=== PATIENT | female | born 1985 | race Caucasian/White ===

== ENCOUNTER 2017-11-26 22:20 | Emergency (ER) | payer OTHER ==
--- NOTE | 2017-11-26 22:38 | ED PDOC ---
HPI: General Adult Time Seen by Provider: 11/26/17 22:38 Chief Complaint (Nursing): Shortness Of Breath Chief Complaint (Provider): SOB, calf pain History Per: Patient Additional Complaint(s): 32-year-old female presents with shortness of breath and left calf pain that started about 1 hour prior to arrival. Patient is status post D&C this morning. She states she was watching TV this evening when she developed shortness of breath and noticed some swelling and pain to left calf. Patient denies any history of DVT or PE. She denies any chest pain. Patient states that she became via IVF and this is her second D&C. No cough, fever or chills. Past Medical History Reviewed: Historical Data, Nursing Documentation, Vital Signs Vital Signs: Last Vital Signs Temp 98.0 F 11/26/17 22:23 Pulse 84 11/26/17 22:23 Resp 16 11/26/17 22:45 BP 114/69 11/26/17 22:23 Pulse Ox 98 11/27/17 01:39 - Medical History PMH: No Chronic Diseases - Surgical History Other surgeries: D&C x 2 - Family History Family History: States: No Known Family Hx - Living Arrangements Living Arrangements: With Family - Social History Current smoker - smoking cessation education provided: No Alcohol: None Drugs: Denies - Allergies Allergies/Adverse Reactions: Allergies Allergy/AdvReac Type Severity Reaction Status Date / Time No Known Allergies Allergy Verified 11/26/17 22:23 Review of Systems ROS Statement: Except As Marked, All Systems Reviewed And Found Negative Constitutional: Negative for: Fever, Chills Cardiovascular: Negative for: Chest Pain Respiratory: Positive for: Shortness of Breath, SOB with Exertion. Negative for : Cough, Hemoptysis, Wheezing Gastrointestinal: Positive for: Abdominal Pain. Negative for: Nausea, Vomiting , Diarrhea Genitourinary Female: Positive for: Vaginal Bleeding. Negative for: Dysuria Musculoskeletal: Positive for: Leg Pain (left calf pain and swelling) Neurological: Negative for: Headache, Dizziness Physical Exam - Reviewed Nursing Documentation Reviewed: Yes Vital Signs Reviewed: Yes - Physical Exam Appears: Positive for: Well, Non-toxic, No Acute Distress Skin: Positive for: Normal Color. Negative for: Rash Eye Exam: Positive for: Normal appearance Neck: Positive for: Normal Cardiovascular/Chest: Positive for: Regular Rate, Rhythm. Negative for: Tachycardia Respiratory: Positive for: Normal Breath Sounds. Negative for: Wheezing, Respiratory Distress Gastrointestinal/Abdominal: Positive for: Tenderness (minimal lower abdominal tenderness). Negative for: Distended, Guarding, Rebound Back: Negative for: L CVA Tenderness, R CVA Tenderness Extremity: Positive for: Normal ROM Neurologic/Psych: Positive for: Alert, Oriented - Laboratory Results Result Diagrams: 11/26/17 23:42 11/26/17 23:42 Urine POC: Positive (s/p D&C today) Urine dip results: Positive for: Blood (moderate), Glucose. Negative for: Leukocyte Esterase, Nitrate, Ketones, Bilirubin, Protein - ECG Interpretation Of ECG: Normal sinus rhythm 79 bpm, no acute changes, reviewed by PA and ED attending O2 Sat by Pulse Oximetry: 98 Pulse Ox Interpretation: Normal - Other Rad CT angio X-Ray: Read By Radiologist X-Ray Interpretation: see below Bedside chest X-Ray: Interpreted by Me, Viewed By Me X-Ray Interpretation: no acute finding Doppler bilateral lower extremities X-Ray: Read By Radiologist X-Ray Interpretation: No DVT b/l Medical Decision Making Medical Decision Makin32 year old female with SOB and left calf pain Plan: EKG CXR CT angio CBC CMP Trop PT/PTT IVF U preg CT: FINDINGS: PULMONARY ARTERIES: Contrast opacification of the pulmonary arteries is adequate, and there are no filling defects seen to suggest pulmonary embolism. AORTA: No evidence of aortic dissection. LUNGS: Incidental 5 mm noncalcified pulmonary nodule in the left lung, image 72/series 601. There is a nearby partially calcified nodule in the left lung. For low-risk patients, no follow-up is necessary. For high-risk patients (smoking history or other known risk factors) an optional chest CT at 12 months could be performed. Areas of focal scarring and bronchiectatic changes in the upper lobes bilaterally. Bandlike density in the right lower lobe, most likely representing scarring. Additional multifocal thin, linear areas of scarring or atelectasis in the lungs bilaterally. Scattered areas of mosaic attenuation in the lung parenchyma bilaterally, which could represent focal air trapping from small airways disease, such as reactive airways disease. No evidence of significant focal consolidation/infiltrate in the lungs. No evidence of diffuse pulmonary vascular congestion. PLEURAL SPACE: No pneumothorax or pleural effusions seen. HEART: No evidence of significant pericardial effusion. MEDIASTINUM: Small hiatal hernia. BONES/JOINTS: No acute bony abnormality identified. SOFT TISSUES: No acute abnormality of the visualized soft tissues seen. LYMPH NODES: No evidence of diffuse lymphadenopathy. IMPRESSION: - No evidence of pulmonary embolism or other significant acute abnormality in the chest. - Incidental 5 mm pumonary nodule. See recommendations above. - Scattered chronic bronchiectatic changes and scarring in the lungs bilaterally. Patient is aware of all diagnostic test results, all questions answered. Patient aware of incidental findings on CT as above. Patient states she has history of tuberculosis from 2001. Patient denies recurrence of shortness of breath since arrival to ED. Advised fluids, rest and follow-up with primary care doctor. Disposition - Clinical Impression Clinical Impression: Muscle cramp, Dyspnea - Patient ED Disposition Is Patient to be Admitted: No Counseled Patient/Family Regarding: Studies Performed, Diagnosis, Need For Followup - Disposition Referrals: [facility] [Outside] Disposition: Routine/Home Disposition Time: 02:01 Condition: STABLE Additional Instructions: Rest and drink plenty of fluids. Tylenol for pain as needed. Follow-up with primary doctor or return any time if acutely worse. Instructions: Muscle and Bone Pain (DC), Shortness of Breath (Dyspnea) (DC) Forms: [employer] (Telugu) Results - Lab Results Lab Results: 11/26/17 11/26/17 23:42 23:42 WBC 15.4 H RBC 4.06 Hgb 11.7 L Hct 34.7 MCV 85.6 MCH 28.9 MCHC 33.8 RDW 13.3 Plt Count 336 MPV 8.3 Neut % (Auto) 90.3 H Lymph % (Auto) 5.2 L [place] % (Auto) 4.0 Eos % (Auto) 0.0 Baso % (Auto) 0.5 Neut # (Auto) 13.9 H Lymph # (Auto) 0.8 L [place] # (Auto) 0.6 Eos # (Auto) 0.0 Baso # (Auto) 0.1 Neutrophils % (Manual) 87 H Lymphocytes % (Manual) 8 L Monocytes % (Manual) 4 Eosinophils % (Manual) 1 Platelet Estimate Normal Sodium 136 Potassium 5.1 H Chloride 106 Carbon Dioxide 21 L Anion Gap 14 BUN 10 Creatinine 0.5 L Est GFR ( Amer) > 60 Est GFR (Non-Af Amer) > 60 Random Glucose 185 H Calcium 9.0 Total Bilirubin 0.3 AST 32 ALT 21 Alkaline Phosphatase 30 L Troponin I < 0.0120 Total Protein 7.3 Albumin 3.6 Globulin 3.7 Albumin/Globulin Ratio 1.0
[2017-11-26] MEDS ORDERED: Sodium Chloride 0.9% 1,000 ML IV STA (22:57)
[2017-11-26] MEDS ORDERED: Sodium Chloride 0.9% 50 ML IV ONE (23:10)
[2017-11-26] MEDS ORDERED: Iodixanol 320 MG/ML 100 ML BOTTLE IV ONE (23:10)
[2017-11-26 23:46] LABS: BASO # 0.1 K/uL (0.0-0.2); BASO % 0.5 % (0.0-2.0); HEMOGLOBIN 11.7 g/dL (12.0-16.0); LYMPH # 0.8 K/uL (1.0-4.3); LYMPH % 5.2 % (20.0-40.0); MEAN CELL VOLUME 85.6 fl (81.0-99.0); MEAN CORPUSCULAR HEMOGLOBIN 28.9 pg (27.0-31.0); MEAN CORPUSCULAR HGB CONC 33.8 g/dL (33.0-37.0); MEAN PLATELET VOLUME 8.3 fl (7.2-11.7); MONO # 0.6 K/uL (0.0-0.8); NEUT # 13.9 K/uL (1.8-7.0); NEUT % 90.3 % (50.0-75.0); PLATELET COUNT 336 K/uL (130-400); RBC 4.06 Mil/uL (3.80-5.20); RED CELL DISTRIBUTION WIDTH 13.3 % (11.5-14.5); WHITE BLOOD COUNT 15.4 K/uL (4.8-10.8)
--- NOTE | 2017-11-26 23:49 | US ---
EXAM: US Duplex Bilateral Lower Extremity Veins EXAM DATE/TIME: 11/26/2017 10:57 PM CLINICAL HISTORY: 32 years old, female; Pain; Leg, lower; Left; Additional info: SOB, calf pain TECHNIQUE: Real-time duplex ultrasound scan of the bilateral lower extremity veins integrating B-mode two-dimensional vascular structure, Doppler spectral analysis, color flow Doppler imaging and compression. COMPARISON: There are no prior studies for comparison. FINDINGS: Right deep veins: Common femoral, superficial femoral, popliteal and posterior tibial veins were evaluated. Left deep veins: Common femoral, superficial femoral, popliteal and posterior tibial veins were evaluated. All veins examined are compressible. There are no intraluminal filling defects. There is expected blood flow on Doppler imaging. There is change in waveform with augmentation. Impression: No deep venous thrombosis in the visualized vascular segments of the lower extremities
[2017-11-27] LABS: ALBUMIN 3.6 g/dL (3.5-5.0); GFR AFRICAN-AMERICAN > 60; GFR NON-AFRICAN AMERICAN > 60
[2017-11-27 00:05] LABS: ALT/SGPT 21 U/L (9-52); AST/SGOT 32 U/L (14-36); BLOOD UREA NITROGEN 10 mg/dl (7-17)
[2017-11-27 01:01] LABS: EOSINOPHIL 1 % (0-7); LYMPHOCYTE 8 % (20-50); MONOCYTE 4 % (0-10); NEUTROPHIL 87 % (42-75); PLATELET ESTIMATE NORMAL (NORMAL); TOTAL CELLS COUNTED 100
--- NOTE | 2017-11-27 01:23 | CT ---
EXAM: CT Angiography Chest With Intravenous Contrast EXAM DATE/TIME: 11/26/2017 10:57 PM CLINICAL HISTORY: 32 years old, female; Signs and symptoms; Shortness of breath; Additional info: SOB, S/P d c this am TECHNIQUE: Axial computed tomographic angiography images of the chest with intravenous contrast using pulmonary embolism protocol. All CT scans at this facility use one or more dose reduction techniques, viz.: automated exposure control; ma/kV adjustment per patient size (including targeted exams where dose is matched to indication; i.e. head); or iterative reconstruction technique. MIP reconstructed images were created and reviewed. Coronal and sagittal reformatted images were created and reviewed. CONTRAST: 85 mL of [id number] administered intravenously. COMPARISON: No relevant prior studies available. FINDINGS: PULMONARY ARTERIES: Contrast opacification of the pulmonary arteries is adequate, and there are no filling defects seen to suggest pulmonary embolism. AORTA: No evidence of aortic dissection. LUNGS: Incidental 5 mm noncalcified pulmonary nodule in the left lung, image 72/series 601. There is a nearby partially calcified nodule in the left lung. For low-risk patients, no follow-up is necessary. For high-risk patients (smoking history or other known risk factors) an optional chest CT at 12 months could be performed. Areas of focal scarring and bronchiectatic changes in the upper lobes bilaterally. Bandlike density in the right lower lobe, most likely representing scarring. Additional multifocal thin, linear areas of scarring or atelectasis in the lungs bilaterally. Scattered areas of mosaic attenuation in the lung parenchyma bilaterally, which could represent focal air trapping from small airways disease, such as reactive airways disease. No evidence of significant focal consolidation/infiltrate in the lungs. No evidence of diffuse pulmonary vascular congestion. PLEURAL SPACE: No pneumothorax or pleural effusions seen. HEART: No evidence of significant pericardial effusion. MEDIASTINUM: Small hiatal hernia. BONES/JOINTS: No acute bony abnormality identified. SOFT TISSUES: No acute abnormality of the visualized soft tissues seen. LYMPH NODES: No evidence of diffuse lymphadenopathy. IMPRESSION: - No evidence of pulmonary embolism or other significant acute abnormality in the chest. - Incidental 5 mm pumonary nodule. See recommendations above. - Scattered chronic bronchiectatic changes and scarring in the lungs bilaterally. - See above for remaining findings.
[2017-11-27 02:09] VITALS: BP 106/64; PULSE 72; RESP 18; TEMP 98.3
[2017-11-27 02:16] VITALS: O2SAT 98
--- NOTE | 2017-11-27 08:01 | RAD ---
HISTORY: clearance COMPARISON: No prior. FINDINGS: LUNGS: No active pulmonary disease. However, fibrotic changes in the medial right apex with pleural thickening at the apex and possibly at the medial left base as well. PLEURA: No significant pleural effusion identified, no pneumothorax apparent. CARDIOVASCULAR: Normal. OSSEOUS STRUCTURES: No significant abnormalities. VISUALIZED UPPER ABDOMEN: Normal. OTHER FINDINGS: None. IMPRESSION: No acute airspace disease bilaterally. 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 No definite acute cardiovascular changes.
== END 2017-11-27 02:10 | disposition home or self-care (01) ==
LOC: H.ER 22:20
DX: R06.00 Dyspnea, unspecified (principal); R25.2 Cramp and spasm
CPT/HCPCS: 71045; 71275; 80053; 81025; 84484; 85025; 93970; 99284; J7030; Q9967

== ENCOUNTER 2018-05-21 17:29 | Emergency (ER) | payer OTHER ==
[2018-05-21 17:43] VITALS: RESP 18; O2SAT 100
[2018-05-21] MEDS ORDERED: Sodium Chloride 0.9% 1,000 ML IV STA (17:59)
--- NOTE | 2018-05-21 18:07 | ED PDOC ---
HPI: SOB/CHF/COPD Time Seen by Provider: 05/21/18 17:39 Chief Complaint (Nursing): Shortness Of Breath Chief Complaint (Provider): shortness of breath History Per: Patient History/Exam Limitations: no limitations Onset/Duration Of Symptoms: Days (x3 weeks) Associated Symptoms: denies: Fever, Chills, Chest Pain, Productive Cough, Leg/Calf Pain, Ankle/Leg Swelling Additional Complaint(s): Lula Snell is a 33 year old female, with a past medical history of hypot hyroidism, who presents to the emergency department complaining of episodes of shortness of breath over the past x3 weeks associated with dizziness. Patient is also complaining of generalized weakness today and states symptoms worsen at night. Patient reports feeling short of breath usually after eating and states symptoms resolve after walking and drinking hot tea. She was seen by her GI in [place] last week where she had blood work done and was also seen at an urgent care center where she had labs done for the same complaints. She denies any fever, chills, chest pain, vision changes, palpitations, cough, congestion, long distance travel, nausea, vomiting, diarrhea, abdominal pain, urinary symptoms, leg pain, numbness or tingling, weakness, headache or control use. No further medical complaints. Of note, patient was diagnosed with tuberculosis last year but states she had an x-ray done recently which was normal. PMD: None provided. Past Medical History Reviewed: Historical Data, Nursing Documentation, Vital Signs Vital Signs: Last Vital Signs Temp 97.8 F 05/21/18 17:42 Pulse 63 05/21/18 17:42 Resp 18 05/21/18 17:42 BP 117/75 05/21/18 17:42 Pulse Ox 100 05/21/18 17:42 - Medical History PMH: Hypothyroidism - Surgical History Other surgeries: D&C - Family History Family History: States: Unknown Family Hx - Allergies Allergies/Adverse Reactions: Allergies Allergy/AdvReac Type Severity Reaction Status Date / Time No Known Allergies Allergy Verified 05/21/18 17:33 Review of Systems ROS Statement: Except As Marked, All Systems Reviewed And Found Negative Constitutional: Negative for: Fever, Chills ENT: Negative for: Nose Congestion Cardiovascular: Negative for: Chest Pain Respiratory: Positive for: Shortness of Breath. Negative for: Cough Gastrointestinal: Negative for: Nausea, Vomiting, Abdominal Pain, Diarrhea Genitourinary Female: Negative for: Dysuria, Frequency, Incontinence Neurological: Negative for: Weakness, Numbness (tingling), Headache, Dizziness Physical Exam - Reviewed Nursing Documentation Reviewed: Yes Vital Signs Reviewed: Yes - Physical Exam Appears: Positive for: No Acute Distress Head Exam: Positive for: ATRAUMATIC, NORMAL INSPECTION, NORMOCEPHALIC Skin: Positive for: Normal Color, Warm, Dry Eye Exam: Positive for: Normal appearance, EOMI, PERRL Neck: Positive for: Normal, Painless ROM Cardiovascular/Chest: Positive for: Regular Rate, Rhythm, Chest Non Tender. Negative for: Murmur Respiratory: Positive for: Normal Breath Sounds. Negative for: Respiratory Distress Gastrointestinal/Abdominal: Positive for: Normal Exam, Soft. Negative for: Tenderness, Guarding, Rebound Back: Positive for: Normal Inspection. Negative for: L CVA Tenderness, R CVA Tenderness, Vertebral Tenderness Extremity: Positive for: Normal ROM (upper and lower extremities). Negative for: Deformity, Swelling Neurologic/Psych: Positive for: Alert, Oriented. Negative for: Motor/Sensory Deficits - Laboratory Results Result Diagrams: 05/21/18 18:25 05/21/18 18:25 - ECG O2 Sat by Pulse Oximetry: 100 (RA) Pulse Ox Interpretation: Normal Medical Decision Making Medical Decision Making: Time: 17:39 Initial Impression: shortness of breath Initial Plan: --EKG --CMP --Lipase --Magnesium --Phosphorus --Troponin I --Urine --CBC w/ differential --Chest two views (PA/LAT) [RAD] --Pepcid 20 mg IVP --Sodium Chloride 1,000 ml IV 1,000 mls/hr --Reevaluation -Reviewed labs with patient, she had CBC, CMP, TSH, H. Pylori and Celiac panel done, all of which were unremarkable. 18:[address] Boykin pending X-Ray and labs. Scribe Attestation: Documented by Dalton Mo, acting as a scribe for Joe Drake MD. Provider Scribe Attestation: All medical record entries made by the Scribe were at my direction and personally dictated by me. I have reviewed the chart and agree that the record accurately reflects my personal performance of the history, physical exam, medic al decision making, and the department course for this patient. I have also personally directed, reviewed, and agree with the discharge instructions and disposition. Disposition - Clinical Impression Clinical Impression: Dyspnea - Disposition Disposition: Transfer of Care Disposition Time: 18:00 Condition: STABLE Additional Instructions: Labwork, chest xray and EKG performed today. See your doctor for further testing in next week. Return to ER for any new or worsening symptoms. Instructions: Shortness of Breath (Dyspnea) (DC) Forms: [employer] (Romanian) Patient Signed Over To: Kiko Boykin III
--- NOTE | 2018-05-21 18:13 | ED PDOC ---
- Laboratory Results Result Diagrams: 05/21/18 18:25 05/21/18 18:25 - ECG O2 Sat by Pulse Oximetry: 100 (RA) Pulse Ox Interpretation: Normal Medical Decision Making Medical Decision Making: pt endorsed from dr martinez pending labs and re-eval. Reports extensive prior outpatient workup which has been unrevealing per patient. CXR prelim view negative labs reviewed and unremarkable on re-eval feels bettter, SPO2 100% and HR 68, lungs clear. I discussed risk factors for thromboembolism including recent immobilization, malignancy, OCPs, smoking, history in self or family and she denies any risk factors. She was nonetheless offered CTA chest for definitive r/o PE and she declined stating felt better. Given normal HR, normal SPO2, no risk factors, less likely to be PE but no excluded, although patient and family member adamant about not doing test and wanting to go home. Given followup and PMD Dr Singer recommended for echo or further testing and indications for return ER discussed. Disposition - Clinical Impression Clinical Impression: Dyspnea - POA Present On Arrival: None - Disposition Referrals: Amanda Singer MD [Staff Provider] - Disposition: Routine/Home Disposition Time: 19:25 Condition: STABLE Additional Instructions: Labwork, chest xray and EKG performed today. See your doctor for further testing in next week. Return to ER for any new or worsening symptoms. Instructions: Shortness of Breath (Dyspnea) (DC) Forms: [employer] (Sudanese)
[2018-05-21 18:40] LABS: BASO # 0.1 K/uL (0.0-0.2); BASO % 0.8 % (0.0-2.0); EOS # 0.1 K/uL (0.0-0.7); EOS % 1.6 % (0.0-4.0); HEMOGLOBIN 12.2 g/dL (12.0-16.0); LYMPH # 2.9 K/uL (1.0-4.3); LYMPH % 39.7 % (20.0-40.0); MEAN CELL VOLUME 84.8 fl (81.0-99.0); MEAN CORPUSCULAR HEMOGLOBIN 28.1 pg (27.0-31.0); MEAN CORPUSCULAR HGB CONC 33.2 g/dL (33.0-37.0); MEAN PLATELET VOLUME 8.4 fl (7.2-11.7); MONO # 0.6 K/uL (0.0-0.8); NEUT # 3.7 K/uL (1.8-7.0); NEUT % 49.9 % (50.0-75.0); NRBC % 0.1 % (0.0-0.0); RBC 4.34 Mil/uL (3.80-5.20); RED CELL DISTRIBUTION WIDTH 14.3 % (11.5-14.5); WHITE BLOOD COUNT 7.4 K/uL (4.8-10.8)
[2018-05-21 18:42] LABS: ALB/GLOB RATIO 1.2 (1.0-2.1); ALBUMIN 4.4 g/dL (3.5-5.0); ALT/SGPT 29 U/L (9-52); AST/SGOT 34 U/L (14-36); BLOOD UREA NITROGEN 8 mg/dl (7-17); GFR NON-AFRICAN AMERICAN > 60; LIPASE 196 U/L (23-300)
[2018-05-21 19:32] VITALS: BP 122/78; PULSE 68; TEMP 98.2
--- NOTE | 2018-05-22 09:43 | CARD ---
APPROVED REPORT Date of service: 05/21/2018 EKG Measurement Heart [id number] <Conclusion> Normal sinus rhythm with sinus arrhythmia Normal ECG
--- NOTE | 2018-05-22 11:45 | RAD ---
Date of service: 05/21/2018 HISTORY: dyspnea COMPARISON: Frontal chest radiograph 11/26/2017. TECHNIQUE: Chest PA and lateral FINDINGS: LUNGS: No active pulmonary disease. PLEURA: No significant pleural effusion identified. No pneumothorax apparent. CARDIOVASCULAR: No aortic atherosclerotic calcification present. Normal cardiac size. No pulmonary vascular congestion. OSSEOUS STRUCTURES: No significant abnormalities. VISUALIZED UPPER ABDOMEN: Normal. OTHER FINDINGS: None. IMPRESSION: No interval acute cardiopulmonary disease appreciated.
== END 2018-05-21 19:32 | disposition home or self-care (01) ==
LOC: H.ER 17:29
DX: J44.9 Chronic obstructive pulmonary disease, unspecified (principal); E03.9 Hypothyroidism, unspecified
CPT/HCPCS: 71046; 80053; 81025; 83690; 83735; 84100; 84484; 85025; 93005; 96374; 99284; J7030

== ENCOUNTER 2018-05-25 09:06 | Emergency (ER) | payer OTHER ==
[2018-05-25 09:16] VITALS: RESP 18; TEMP 97.5
--- NOTE | 2018-05-25 09:42 | ED PDOC ---
HPI: General Adult Time Seen by Provider: 05/25/18 09:20 Chief Complaint (Provider): shortness of breath and congestion History Per: Patient History/Exam Limitations: no limitations Onset/Duration Of Symptoms: Days (x2) Current Symptoms Are (Timing): Still Present Additional Complaint(s): Lula Snell is a 33 year old female, with a past medical history of hypothyroidism, who presents to the emergency department complaining of shortness of breath from the neck up onset for x2 nights associated with congestion. Patient was seen here on 05/21 for shortness of breath with normal work up. She denies any chest pain, cough or palpitations. No further medical complaints. PMD: None provided. Past Medical History Reviewed: Historical Data, Nursing Documentation, Vital Signs Vital Signs: Last Vital Signs Temp 97.5 F L 05/25/18 09:16 Pulse 68 05/25/18 09:16 Resp 18 05/25/18 09:16 BP 114/75 05/25/18 09:16 Pulse Ox 98 05/25/18 09:16 - Medical History PMH: Hypothyroidism - Surgical History Surgical History: No Surg Hx - Family History Family History: States: Unknown Family Hx - Allergies Allergies/Adverse Reactions: Allergies Allergy/AdvReac Type Severity Reaction Status Date / Time No Known Allergies Allergy Verified 05/21/18 17:33 Review of Systems ROS Statement: Except As Marked, All Systems Reviewed And Found Negative ENT: Positive for: Nose Congestion Cardiovascular: Negative for: Chest Pain, Palpitations Respiratory: Positive for: Shortness of Breath (from the neck up). Negative for: Cough Physical Exam - Reviewed Nursing Documentation Reviewed: Yes Vital Signs Reviewed: Yes - Physical Exam Appears: Positive for: No Acute Distress Head Exam: Positive for: ATRAUMATIC, NORMAL INSPECTION, NORMOCEPHALIC Skin: Positive for: Normal Color, Warm, Dry Eye Exam: Positive for: Normal appearance, EOMI, PERRL ENT: Positive for: Normal ENT Inspection, Pharynx Is (clear) Neck: Positive for: Painless ROM, Supple. Negative for: Normal (Questionable swelling to right side of thyroid, nontender. ) Cardiovascular/Chest: Positive for: Regular Rate, Rhythm. Negative for: Murmur Respiratory: Positive for: Normal Breath Sounds. Negative for: Respiratory Distress Gastrointestinal/Abdominal: Positive for: Normal Exam, Soft. Negative for: Tend erness, Guarding, Rebound Back: Positive for: Normal Inspection. Negative for: L CVA Tenderness, R CVA Tenderness, Vertebral Tenderness Extremity: Positive for: Normal ROM (upper and lower extremities). Negative for: Tenderness, Calf Tenderness, Deformity, Swelling Neurologic/Psych: Positive for: Alert, Oriented - ECG O2 Sat by Pulse Oximetry: 98 (RA) Pulse Ox Interpretation: Normal Medical Decision Making Medical Decision Making: Time: 09:20 Initial Plan: --T3 Uptake --T4 --TSH --D Dimer --Reevaluation ----- Scribe Attestation: Documented by Dalton Mo, acting as a scribe for Jerry Ferrera MD. Provider Scribe Attestation: All medical record entries made by the Scribe were at my direction and personally dictated by me. I have reviewed the chart and agree that the record accurately reflects my personal performance of the history, physical exam, medical decision making, and the department course for this patient. I have also personally directed, reviewed, and agree with the discharge instructions and disposition. Disposition - Clinical Impression Clinical Impression: Thyroid disease - Patient ED Disposition Is Patient to be Admitted: No Counseled Patient/Family Regarding: Studies Performed, Diagnosis, Need For Followup, Rx Given - Disposition Referrals: Amanda Singer MD [Staff Provider] - Disposition: Routine/Home Disposition Time: 13:38 Condition: FAIR Instructions: Thyroid Uptake and Scan
[2018-05-25 11:06] LABS: T3 UPTAKE 31.3 % (23.0-41.0); T4 13.4 ug/dl (5.5-11.0)
--- NOTE | 2018-05-25 13:25 | US ---
Date of service: 05/25/2018 HISTORY: Enlarged thyroid TECHNIQUE: Sonographic evaluation of the thyroid gland. COMPARISON: None. FINDINGS: RIGHT LOBE: Measures 1.1 x 1.2 x 3.8 cm. Normal echotexture and flow. Nodules: None LEFT LOBE: Measures 1.1 x 0.8 x 3.3 cm. Normal echotexture and flow. Nodules: None ISTHMUS: Measures 2.3 mm. Normal echotexture and flow. Nodules: None OTHER FINDINGS: None . IMPRESSION: Unremarkable thyroid sonogram.
[2018-05-25 13:45] VITALS: BP 128/81; PULSE 91; O2SAT 99
== END 2018-05-25 13:46 | disposition home or self-care (01) ==
LOC: H.ER 09:06
DX: E07.9 Disorder of thyroid, unspecified (principal)